=== PATIENT | male | born 1975 | race Hispanic/Latino ===

== ENCOUNTER 2020-08-20 20:08 | Inpatient (IN) | payer SELFPAY ==
[2020-08-20 20:36] LABS: Analyzer IN Cardio ER; pH (venous) 7.02 (7.32-7.43)
[2020-08-20 20:38] LABS: Actual Bicarbonate (HCO3v) 7 mEq/L (22-28)
[2020-08-20 20:41] LABS: Chloride (VBG) 102 mmol/L (98-106); Hemoglobin (Hb) 18.4 g/dL (13.1-17.2); Potassium (VBG) 3.81 mmol/L (3.70-5.30); Sodium 136.9 mmol/L (133-146)
[2020-08-20 20:42] LABS: Calcium, Ionized (venous) 1.31 mmol/L (1.16-1.32)
[2020-08-20 20:53] LABS: #Eosinphils 0.1 thou/uL (0.0-0.7); #Lymphocytes 1.8 thou/uL (1.20-3.40); #Monocytes 1.1 thou/uL (0.11-0.59); #Neutrophils 9.8 thou/uL (1.40-6.50); %Basophils 0.2 % (0.0-1.0); %Eosinophils 0.5 % (0.0-10.0); %Lymphocytes 14.2 % (21.0-51.0); %Monocytes 8.7 % (0.0-10.0); %Neutrophils 76.4 % (42.0-75.0); Hemoglobin 17.6 g/dL (14.0-18.0); Mean Corpuscular HGB CONC 34.1 g/dL (32.0-36.0); Mean Corpuscular Hemoglobin 29.9 pg (27.0-31.0); Mean Corpuscular Volume 87.4 fL (78.0-98.0); Mean Platelet Volume 8.1 fL (7.4-10.4); Platelet Count 303 thou/uL (130-400); RBC Distribution Width 13.2 % (11.5-14.5); Red Blood Cell (RBC) Count 5.89 mill/uL (4.70-6.10); White Blood Cell (WBC) Count 12.8 thou/uL (4.8-10.8)
[2020-08-20 21:07] LABS: Acetaminophen Less than 6.0 mcg/mL (10.0-30.0); Alcohol Less than 10 mg/dL (Less than 10); Salicylate Less than 8.0 mg/dL (15.0-30.0)
[2020-08-20 21:08] LABS: BUN (Urea Nitrogen) 21 mg/dL (8.9-20.6); Calc. Creatinine Clearance 0 mL/min (70-130); Chloride 101 mmol/L (98-107); Potassium 3.8 mmol/L (3.5-5.1); Sodium 130 mmol/L (136-145)
[2020-08-20 21:09] LABS: ALT (SGPT) 35 U/L (8-55); AST (SGOT) 18 U/L (5-34); Albumin 4.8 g/dL (3.5-5.0); Alkaline Phosphatase 143 U/L (40-110); Bilirubin, Total 0.3 mg/dL (0.2-1.2); Calcium 9.3 mg/dL (7.8-10.44); Globulin 3.8 g/dL (2.4-3.5); Glucose 425 mg/dL (70-105); Protein, Total 8.6 g/dL (6.0-8.3)
[2020-08-20 21:16] LABS: Carbon Dioxide Less than 8 mmol/L (22-29)
[2020-08-20 21:24] LABS: Lipase 1662 U/L (8-78)
[2020-08-20 21:26] LABS: Magnesium 2.8 mg/dL (1.6-2.6); Phosphorus 3.6 mg/dL (2.3-4.7)
[2020-08-20] MEDS ORDERED: INSULIN REGULAR IN 0.9 % NACL 100 UNIT/100 ML BAG ONE (21:28)
[2020-08-20] MEDS ORDERED: Acetaminophen 325 MG TAB PO PRN (21:50)
[2020-08-20] MEDS ORDERED: Ondansetron ODT 4 MG TAB PO PRN (21:50)
[2020-08-20] MEDS ORDERED: Bisacodyl 10 MG SUPP PR PRN (21:50)
[2020-08-20] MEDS ORDERED: HYDROcodone/Acetaminophen 5/325 mg Tablet PO PRN (21:50)
[2020-08-20] MEDS ORDERED: Calcium Carbonate 500 MG ChewTAB PO PRN (21:50)
[2020-08-20] MEDS ORDERED: Guaifenesin DM 100-10/5 ML UDCUP PO PRN (21:50)
[2020-08-20] MEDS ORDERED: Senokot S 8.6-50 MG TAB PO PRN (21:50)
[2020-08-20] MEDS ORDERED: Electrolyte Replacement Protocol 1 EACH IVPB ONE (21:50)
[2020-08-20] MEDS ORDERED: Sodium Chloride 0.9% 1,000 ML IV PRN ×4 (21:50)
[2020-08-20] MEDS ORDERED: Dextrose 5 %-0.45 % NaCl 1,000 ML IV PRN (21:50)
[2020-08-20] MEDS ORDERED: Loperamide HCl 2 MG CAP PO PRN (21:50)
[2020-08-20] MEDS ORDERED: NS 0.9% w/ 20 MEQ KCL 1,000 ML IV PRN (21:50)
[2020-08-20 21:52] LABS: SARS-CoV-2 NAA Rapid Test Not Detected (NotDetected)
[2020-08-20 21:53] LABS: Bacteria/HPF None Seen HPF (None Seen); Bilirubin Negative (Negative); Blood, Urine 3+ (Negative); Clarity Clear (Clear); Glucose, Urine (Dipstick) Greater than 1000 mg/dL (Negative); Ketone, Urine Greater than 150 mg/dL (Negative); Leukocyte Negative Leu/uL (Negative); Nitrite Negative (Negative); Protein, Urine (Dipstick) 200 mg/dL (Neg-Trace); RBC/HPF 0-3 HPF (0-3); Specific Gravity, Urine 1.027 (1.002-1.036); Squamous Epithelial 0-3 HPF (0-3); Urobilinogen Normal mg/dL (Less than 2); WBC/HPF 0-3 HPF (0-3)
[2020-08-20 21:57] LABS: Amphetamine Not Detected (NotDetected); Barbiturates Screen Not Detected (NotDetected); Benzodiazepine Screen Not Detected (NotDetected); Cocaine Metabolite Screen Not Detected (NotDetected); Medtox Control Line Valid? VALID (VALID); Medtox Reader # READER 4; Methadone Not Detected (NotDetected); Methamphetamine Not Detected (NotDetected); Opiate Screen Not Detected (NotDetected); Oxycodone Screen Not Detected (NotDetected); Phencyclidine (PCP) Not Detected (NotDetected); THC/Cannabinoid Screen Detected (NotDetected); Tricyclic Screen Not Detected (NotDetected)
[2020-08-20] MEDS ORDERED: HUMULIN R 100 UNITS in Sodium Chloride 0.9% 100 ML IVPB SCH (22:00)
[2020-08-20] MEDS ORDERED: Electrolyte Replacement Protocol FS PRN (22:15)
[2020-08-20] MEDS ORDERED: NS 0.9% w/ 20 MEQ KCL 1,000 ML ONE (23:02)
[2020-08-20] MEDS: NS 0.9% w/ 20 MEQ KCL 1,000 ML IV PRN (23:13)
[2020-08-20 23:14] LABS: BUN (Urea Nitrogen) 20 mg/dL (8.9-20.6); Calc. Creatinine Clearance 0 mL/min (70-130); Calcium 8.7 mg/dL (7.8-10.44); Chloride 106 mmol/L (98-107); Glucose 365 mg/dL (70-105); Potassium 3.9 mmol/L (3.5-5.1); Sodium 131 mmol/L (136-145)
[2020-08-20 23:19] LABS: Carbon Dioxide Less than 8 mmol/L (22-29)
[2020-08-20 23:36] LABS: Lactic Acid 2.6 mmol/L (0.5-2.2)
[2020-08-20] MEDS ORDERED: Ondansetron PF 4 MG/2 ML Vial ONE (23:44)
[2020-08-20] MEDS: Ondansetron PF 4 MG/2 ML Vial IVP PRN (23:47)
[2020-08-21] MEDS: NS 0.9% w/ 20 MEQ KCL 1,000 ML IV PRN (01:11)
[2020-08-21] MEDS ORDERED: NS 0.9% w/ 20 MEQ KCL 1,000 ML ONE (01:14)
[2020-08-21 03:16] LABS: #Eosinphils 0.1 thou/uL (0.0-0.7); #Lymphocytes 1.5 thou/uL (1.20-3.40); #Monocytes 1.2 thou/uL (0.11-0.59); #Neutrophils 8.6 thou/uL (1.40-6.50); %Basophils 0.2 % (0.0-1.0); %Lymphocytes 13.3 % (21.0-51.0); %Monocytes 10.4 % (0.0-10.0); %Neutrophils 75.2 % (42.0-75.0); Hemoglobin 15.7 g/dL (14.0-18.0); Mean Corpuscular HGB CONC 34.3 g/dL (32.0-36.0); Mean Corpuscular Hemoglobin 30.2 pg (27.0-31.0); Mean Platelet Volume 7.8 fL (7.4-10.4); Platelet Count 223 thou/uL (130-400); White Blood Cell (WBC) Count 11.5 thou/uL (4.8-10.8)
[2020-08-21 03:53] LABS: Hemoglobin A1c 13.1 % (4.0-6.0)
[2020-08-21] MEDS: D5 1/2 NS w/20 mEq KCL 1,000 ML IV PRN ×4 (04:02→17:27)
[2020-08-21 04:07] LABS: Free T4 (Free Thyroxine) 0.53 ng/dL (0.70-1.48)
[2020-08-21 04:13] LABS: ALT (SGPT) 25 U/L (8-55); AST (SGOT) 16 U/L (5-34); Albumin 3.7 g/dL (3.5-5.0); Alkaline Phosphatase 109 U/L (40-110); BUN (Urea Nitrogen) 19 mg/dL (8.9-20.6); Bilirubin, Total 0.2 mg/dL (0.2-1.2); Calc. Creatinine Clearance 0 mL/min (70-130); Carbon Dioxide Less than 8 mmol/L (22-29); Cardiac Risk 19.8 (Less than 4.5); Chloride 114 mmol/L (98-107); Cholesterol 535 mg/dl (< 200 Desired); Globulin 3.6 g/dL (2.4-3.5); Glucose 245 mg/dL (70-105); HDL Cholesterol 27 mg/dL (>60 Neg Risk); Lipase 597 U/L (8-78); Magnesium 2.4 mg/dL (1.6-2.6); Phosphorus 1.6 mg/dL (2.3-4.7); Potassium 3.6 mmol/L (3.5-5.1); Protein, Total 7.3 g/dL (6.0-8.3); Sodium 135 mmol/L (136-145)
[2020-08-21] MEDS ORDERED: Sodium Bicarb 50 MEQ/50 ML Abboject 8.4% SYRINGE IVP SCH (04:30)
[2020-08-21] MEDS ORDERED: Sodium Bicarb 50 MEQ/50 ML Abboject 8.4% SYRINGE ONE (04:36)
[2020-08-21] MEDS ORDERED: Magnesium 2 GM/50 ML 2 GM in Premix Bag 1 BAG IVPB SCH (06:15)
[2020-08-21] MEDS ORDERED: INSULIN REGULAR IN 0.9 % NACL 100 UNIT/100 ML BAG ONE (06:59)
[2020-08-21 07:11] LABS: BUN (Urea Nitrogen) 17 mg/dL (8.9-20.6); Calc. Creatinine Clearance 0 mL/min (70-130); Calcium 7.8 mg/dL (7.8-10.44); Chloride 116 mmol/L (98-107); Glucose 207 mg/dL (70-105); Potassium 3.1 mmol/L (3.5-5.1); Sodium 135 mmol/L (136-145)
[2020-08-21 07:17] LABS: Carbon Dioxide Less than 8 mmol/L (22-29)
[2020-08-21] MEDS ORDERED: Potassium Chloride 20 MEQ TAB PO SCH ×2 (07:30→21:15)
[2020-08-21] MEDS: Famotidine 20 MG TAB PO SCH (08:21)
[2020-08-21] MEDS: PHOS-NAK 1 PKT PACK PO SCH ×2 (08:21→12:12)
[2020-08-21] MEDS: Famotidine/PF 20 mg/2ml Vial SLOW IVP SCH (08:21)
[2020-08-21] MEDS ORDERED: Potassium Chloride 20 MEQ TAB ONE (08:25)
[2020-08-21] MEDS ORDERED: Famotidine 20 MG TAB ONE (08:25)
[2020-08-21] MEDS ORDERED: Heparin 10,000 UNITS/ 10 ML VIAL ONE (08:26)
[2020-08-21] MEDS: Heparin 5,000 UNITS/ML VIAL SC SCH ×3 (09:17→20:56)
[2020-08-21 09:36] VITALS: BP 127/72
[2020-08-21 10:54] LABS: Triglycerides 1261 mg/dL (Less than 150)
[2020-08-21 10:59] VITALS: BMI 36.6
[2020-08-21 10:59] LABS: Glucose 216 mg/dL (70-105)
[2020-08-21 12:34] LABS: Glucose 131 mg/dL (70-105)
[2020-08-21 20:38] LABS: Anion Gap 16 mmol/L (10-20); BUN (Urea Nitrogen) 12 mg/dL (8.9-20.6); Calc. Creatinine Clearance 163 mL/min (70-130); Calcium 8.2 mg/dL (7.8-10.44); Chloride 114 mmol/L (98-107); Glucose 191 mg/dL (70-105); Sodium 135 mmol/L (136-145)
[2020-08-21 20:49] LABS: Carbon Dioxide 8 mmol/L (22-29); Potassium 2.8 mmol/L (3.5-5.1)
[2020-08-21] MEDS: Potassium Chloride 20 MEQ TAB PO SCH (20:56)
[2020-08-21 23:33] LABS: Anion Gap 14 mmol/L (10-20); BUN (Urea Nitrogen) 10 mg/dL (8.9-20.6); Calc. Creatinine Clearance 169 mL/min (70-130); Calcium 7.8 mg/dL (7.8-10.44); Chloride 113 mmol/L (98-107); Glucose 273 mg/dL (70-105); Potassium 3.2 mmol/L (3.5-5.1); Sodium 132 mmol/L (136-145)
[2020-08-21 23:35] LABS: Carbon Dioxide 8 mmol/L (22-29)
[2020-08-22] MEDS ORDERED: HumaLOG 300 UNITS/3 ML VIAL SC PRN (00:45)
[2020-08-22] MEDS ORDERED: Dextrose 5% in Water 1,000 ML IV PRN (00:45)
[2020-08-22] MEDS ORDERED: Dextrose 50% Abboject 50 ML SYRINGE IVP PRN (00:45)
[2020-08-22] MEDS: Potassium Chloride 20 MEQ TAB PO SCH (00:50)
[2020-08-22] MEDS: Sodium Bicarbonate 50 MEQ in Sodium Chloride 0.45% 1,000 ML IV SCH ×2 (00:50→14:50)
[2020-08-22 04:31] LABS: Hemoglobin 14.8 g/dL (14.0-18.0); Mean Corpuscular HGB CONC 34.4 g/dL (32.0-36.0); Mean Corpuscular Hemoglobin 29.6 pg (27.0-31.0); Mean Platelet Volume 9.5 fL (7.4-10.4); Platelet Count 134 thou/uL (130-400); RBC Distribution Width 13.2 % (11.5-14.5); Red Blood Cell (RBC) Count 4.99 mill/uL (4.70-6.10); White Blood Cell (WBC) Count 5.6 thou/uL (4.8-10.8)
[2020-08-22 04:32] LABS: ALT (SGPT) 22 U/L (8-55); AST (SGOT) 15 U/L (5-34); Albumin 3.2 g/dL (3.5-5.0); Alkaline Phosphatase 87 U/L (40-110); Anion Gap 13 mmol/L (10-20); BUN (Urea Nitrogen) 10 mg/dL (8.9-20.6); Bilirubin, Total 0.5 mg/dL (0.2-1.2); Calc. Creatinine Clearance 171 mL/min (70-130); Calcium 8.5 mg/dL (7.8-10.44); Carbon Dioxide 12 mmol/L (22-29); Chloride 112 mmol/L (98-107); Globulin 2.8 g/dL (2.4-3.5); Glucose 256 mg/dL (70-105); Phosphorus Less than 1.0 mg/dL (2.3-4.7); Potassium 3.1 mmol/L (3.5-5.1); Sodium 134 mmol/L (136-145)
[2020-08-22] MEDS ORDERED: Potassium Phosphate 30 MMOL in Sodium Chloride 0.9% 250 ML 250 ML IVPB SCH (04:45)
[2020-08-22] MEDS ORDERED: Potassium Chloride 20 MEQ TAB PO SCH (04:45)
[2020-08-22 04:47] LABS: Lymphocytes 27 % (21-51); MDiff Complete? YES; Metamyelocyte 2 % (0-0); Monocytes 7 % (0-10); Neutrophil 64 % (42-75); Platelet Morphology Comment Appears Adequate
[2020-08-22] MEDS: HumaLOG 300 UNITS/3 ML VIAL SC PRN ×4 (06:36→20:22)
[2020-08-22] MEDS: Famotidine/PF 20 mg/2ml Vial SLOW IVP SCH (08:30)
[2020-08-22] MEDS: Famotidine 20 MG TAB PO SCH (08:31)
[2020-08-22] MEDS: Heparin 5,000 UNITS/ML VIAL SC SCH ×3 (08:31→20:21)
[2020-08-22] MEDS: Ondansetron PF 4 MG/2 ML Vial IVP PRN (11:12)
[2020-08-22] MEDS ORDERED: Lantus 1000 UNITS/10 ML VIAL SC SCH (11:30)
[2020-08-22 11:58] LABS: Anion Gap 17 mmol/L (10-20); BUN (Urea Nitrogen) 8 mg/dL (8.9-20.6); Calc. Creatinine Clearance 156 mL/min (70-130); Calcium 8.5 mg/dL (7.8-10.44); Carbon Dioxide 15 mmol/L (22-29); Chloride 106 mmol/L (98-107); Glucose 326 mg/dL (70-105); Magnesium 2.5 mg/dL (1.6-2.6); Potassium 3.7 mmol/L (3.5-5.1); Sodium 134 mmol/L (136-145)
[2020-08-22] MEDS ORDERED: Sodium Chloride 0.9% 1,000 ML IV SCH (14:00)
[2020-08-22 14:11] LABS: Anion Gap 19 mmol/L (10-20); BUN (Urea Nitrogen) 8 mg/dL (8.9-20.6); Calc. Creatinine Clearance 161 mL/min (70-130); Calcium 8.5 mg/dL (7.8-10.44); Carbon Dioxide 14 mmol/L (22-29); Chloride 104 mmol/L (98-107); Glucose 299 mg/dL (70-105); Phosphorus 1.2 mg/dL (2.3-4.7); Potassium 3.9 mmol/L (3.5-5.1); Sodium 133 mmol/L (136-145)
[2020-08-22] MEDS: PHOS-NAK 1 PKT PACK PO SCH ×3 (14:49→22:10)
[2020-08-23] MEDS: PHOS-NAK 1 PKT PACK PO SCH (02:53)
[2020-08-23 04:30] LABS: Anion Gap 15 mmol/L (10-20); BUN (Urea Nitrogen) 8 mg/dL (8.9-20.6); Calc. Creatinine Clearance 182 mL/min (70-130); Calcium 8.5 mg/dL (7.8-10.44); Carbon Dioxide 23 mmol/L (22-29); Chloride 96 mmol/L (98-107); Glucose 293 mg/dL (70-105); Sodium 131 mmol/L (136-145)
[2020-08-23 04:36] LABS: Potassium 2.9 mmol/L (3.5-5.1)
[2020-08-23 04:51] LABS: Phosphorus 2.4 mg/dL (2.3-4.7)
[2020-08-23] MEDS: Potassium Chloride 20 MEQ TAB PO SCH ×2 (04:52→07:54)
[2020-08-23] MEDS: Sodium Bicarbonate 50 MEQ in Sodium Chloride 0.45% 1,000 ML IV SCH ×2 (05:07→20:47)
[2020-08-23] MEDS: HumaLOG 300 UNITS/3 ML VIAL SC PRN ×4 (05:55→20:48)
[2020-08-23] MEDS: Famotidine 20 MG TAB PO SCH ×3 (07:54→20:47)
[2020-08-23] MEDS: Heparin 5,000 UNITS/ML VIAL SC SCH ×3 (07:54→20:50)
[2020-08-23] MEDS ORDERED: Lantus 1000 UNITS/10 ML VIAL SC SCH ×2 (09:00→12:15)
[2020-08-23] MEDS ORDERED: Potassium Chloride 20 MEQ TAB PO SCH (12:15)
[2020-08-24 04:07] LABS: Anion Gap 16 mmol/L (10-20); BUN (Urea Nitrogen) 8 mg/dL (8.9-20.6); Calc. Creatinine Clearance 189 mL/min (70-130); Calcium 9.2 mg/dL (7.8-10.44); Carbon Dioxide 27 mmol/L (22-29); Chloride 96 mmol/L (98-107); Glucose 201 mg/dL (70-105); Sodium 136 mmol/L (136-145)
[2020-08-24 04:13] LABS: Potassium 2.8 mmol/L (3.5-5.1)
[2020-08-24] MEDS: Potassium Chloride 20 MEQ TAB PO SCH ×2 (04:26→08:14)
[2020-08-24] MEDS: HumaLOG 300 UNITS/3 ML VIAL SC PRN ×2 (05:38→15:37)
[2020-08-24] MEDS: Heparin 5,000 UNITS/ML VIAL SC SCH ×2 (08:14→15:24)
[2020-08-24] MEDS: Famotidine 20 MG TAB PO SCH (08:14)
[2020-08-24] MEDS: Lantus 1000 UNITS/10 ML VIAL SC SCH ×2 (08:15→11:22)
[2020-08-24] MEDS ORDERED: Lantus 1000 UNITS/10 ML VIAL SC SCH (09:00)
[2020-08-24] MEDS: Sodium Bicarbonate 50 MEQ in Sodium Chloride 0.45% 1,000 ML IV SCH (11:26)
[2020-08-24 14:26] LABS: Anion Gap 16 mmol/L (10-20); BUN (Urea Nitrogen) 11 mg/dL (8.9-20.6); Calc. Creatinine Clearance 130 mL/min (70-130); Calcium 9.5 mg/dL (7.8-10.44); Carbon Dioxide 26 mmol/L (22-29); Chloride 93 mmol/L (98-107); Glucose 377 mg/dL (70-105); Potassium 3.9 mmol/L (3.5-5.1); Sodium 131 mmol/L (136-145)
[2020-08-24 15:28] VITALS: TEMP 96.2
== END 2020-08-24 16:15 | disposition home or self-care (01) | DRG 638 ==
LOC: ERS 20:08 → ERHOLD 21:38 → IMCU/EMU 08-21 10:01
PROVIDERS: ADMIT Internal Medicine; ATTEND Student in an Organized Health Care Education/Training Program
DX: E11.10 Type 2 diabetes mellitus with ketoacidosis without coma (principal); N17.9 Acute kidney failure, unspecified; E87.1 Hypo-osmolality and hyponatremia; E03.9 Hypothyroidism, unspecified; E07.81 Sick-euthyroid syndrome; Z20.822 Contact with and (suspected) exposure to COVID-19; E86.0 Dehydration; R74.8 Abnormal levels of other serum enzymes; R79.89 Other specified abnormal findings of blood chemistry; R03.0 Elevated blood-pressure reading, without diagnosis of hypertension; F12.10 Cannabis abuse, uncomplicated; E87.6 Hypokalemia; Z83.3 Family history of diabetes mellitus
CPT/HCPCS: 36415; 36416; 71045; 76705; 80048; 80053; 80061; 80306; 80307; 81003; 81015; 82010; 82805; 83036; 83605; 83690; 83735; 83880; 84100; 84439; 84443; 84481; 84484; 85025; 85379; 93005; 96365; J1644; J1815; J2405; J3480; J3490; J7050; U0002